=== PATIENT | male | born 1980 | race Caucasian/White ===

== ENCOUNTER 2024-01-15 21:28 | Emergency (ER) | payer BC ==
[2024-01-15] MEDS: Diphtheria,Pertussis(Acell),Tetanus Vaccine 0.5 ML Syringe IM ONE (22:30)
== END 2024-01-15 22:45 | disposition home or self-care (01) ==
LOC: JP.ED 21:28
DX: S80.852A Superficial foreign body, left lower leg, initial encounter (principal); Z23 Encounter for immunization; W45.8XXA Other foreign body or object entering through skin, initial encounter
CPT/HCPCS: 90471; 90715; 99282; 99283-25